=== PATIENT | female | born 1960 | race Hispanic/Latino ===

== ENCOUNTER 2016-07-03 08:31 | Day surgery (SDC) | payer OTHER ==
[~2016-07-03] VITALS: Ht 157.5 cm; Wt 74.4 kg
[~2016-07-03 08:31] MED LIST: BUPROPION150 M3 PO; EMBEDA 20-0.8 M1 CAP PO; LYRICA50 MG PO; METFORMIN500 MG PO; OXYCODONE/ACETA1 TA4 PO; PHENERGAN25 MG/TAB PO; PRILOSEC20 MG/CAP PO; QUETIAPINE FUM100 MG PO; TRAMADOL HCL50 MG PO
[2016-07-03 13:26] VITALS: BP 124/75
== END 2016-07-03 12:08 | disposition home or self-care (01) | DRG 392 ==
LOC: ENDO 08:31 → ORM 20:45
PROVIDERS: ATTEND Internal Medicine Gastroenterology
PROC: 0DB48ZX Excision of Esophagogastric Junction, Via Natural or Artificial Opening Endoscopic, Diagnostic (ICD-10-PCS; principal; 2016-07-03)
PROC: 0DB58ZX Excision of Esophagus, Via Natural or Artificial Opening Endoscopic, Diagnostic (ICD-10-PCS; 2016-07-03)
DX: R11.2 Nausea with vomiting, unspecified (principal); M32.9 Systemic lupus erythematosus, unspecified; R10.13 Epigastric pain; R10.11 Right upper quadrant pain; K21.9 Gastro-esophageal reflux disease without esophagitis; R63.4 Abnormal weight loss; K29.70 Gastritis, unspecified, without bleeding; K22.8 Other specified diseases of esophagus; K21.0 Gastro-esophageal reflux disease with esophagitis; I10 Essential (primary) hypertension; E11.9 Type 2 diabetes mellitus without complications; M06.9 Rheumatoid arthritis, unspecified; F17.210 Nicotine dependence, cigarettes, uncomplicated; M79.7 Fibromyalgia